=== PATIENT | male | born 1995 | race Caucasian/White ===

== ENCOUNTER 2021-12-03 17:26 | Inpatient (IN) ==
[2021-12-03] MEDS ORDERED: Ketamine *HR* 500 MG/10 ML MDV IM ONE ×2 (17:44→18:00)
[2021-12-03] MEDS ORDERED: Ketamine *HR* 500 MG/10 ML MDV ONE (17:54)
[2021-12-03] MEDS ORDERED: 0.9 % Sodium Chloride 1,000 ML IVC ONE (18:14)
[2021-12-03 18:51] LABS: VBG HCO3 26 mEq/L (21-27); VBG PCO2 35 mmHg (41-51); VBG PH 7.47 pH Units (7.32-7.42); VBG PO2 66 mmHg (25-50)
[2021-12-03 19:15] LABS: Acetaminophen < 10 mcg/mL (10-20); Alanine Aminotransferase 17 Units/L (7-52); Albumin 4.9 g/dL (3.5-5.7); Albumin/Globulin Ratio 1.4 (1.1-2.2); Alkaline Phosphatase 143 Units/L (34-104); Aspartate Amino Transferase 20 Units/L (13-39); Bilirubin,Direct 0.2 mg/dL (0.0-0.2); Bilirubin,Indirect 0.6 mg/dL (0.0-1.0); Bilirubin,Total 0.8 mg/dL (0.3-1.0); Creatine Kinase 125 Units/L (30-223); Ethanol < 10 mg/dL (Less than 10); Globulin 3.4 g/dL (2.4-3.5); Salicylate < 2.5 mg/dL (15.0-30.0); Total Protein 8.3 g/dL (6.4-8.9)
[2021-12-03 19:24] LABS: Amphetamine Screen,Urine Negative ng/mL (Cutoff=1000); Barbiturate Screen,Urine Negative ng/mL (Cutoff=200); Benzodiazepines Screen,Urine Positive ng/mL (Cutoff=200); Cannabinoid Screen,Urine Positive ng/mL (Cutoff = 50); Cocaine Screen,Urine Negative ng/mL (Cutoff= 300); Opiate Screen,Urine Negative ng/mL (Cutoff=300); Phencyclidine Screen,Urine Negative ng/mL (Cutoff=25)
[2021-12-03] MEDS ORDERED: Ondansetron 4 MG/2 ML VIAL IVP ONE ×2 (19:56→23:20)
[2021-12-04] MEDS ORDERED: Ondansetron 4 MG/2 ML VIAL IVP PRN (00:29)
[2021-12-04] MEDS ORDERED: Naloxone 0.4 MG/ML INJ IVP PRN (00:29)
[2021-12-04] MEDS ORDERED: Melatonin 3 MG TABLET PO PRN (00:35)
[2021-12-04] MEDS ORDERED: diazePAM 10 MG/2 ML SYRINGE IVP STA (01:26)
[2021-12-04] MEDS: Ringers Solution, Lactated 1,000 ML IVC SCH ×2 (01:48→08:58)
[2021-12-04] MEDS: *HR* Promethazine 25 MG/ML VIAL IM PRN ×2 (03:16→10:14)
[2021-12-04 06:11] LABS: Basophils % 0.1 %; Hematocrit 36.2 % (37.5-50.1); Hemoglobin 13.2 g/dL (12.9-16.9); Immature Granulocytes % 0.7 % (0-4); Lymphocytes # 1.1 K/mcL (0.6-4.6); Lymphocytes % 6.7 %; Mean Corpuscular HGB Conc 36.5 g/dL (31.6-35.5); Mean Corpuscular Hemoglobin 28.3 pg (28.0-33.3); Mean Corpuscular Volume 77.7 fL (83.0-100.0); Mean Platelet Volume 9.2 fL (9.4-12.4); Neutrophils # 13.8 K/mcL (1.6-8.9); Platelet Count 381 K/mcL (140-400); Red Blood Count 4.66 M/mcL (4.19-5.50); Red Cell Distribution Width 13.2 % (11.5-14.5); Segmented Neutrophils % 86.5 %; White Blood Count 15.9 K/mcL (4.3-11.1)
[2021-12-04 06:24] LABS: INR 1.1; Prothrombin Time 12.5 Seconds (9.4-12.1)
[2021-12-04 06:31] LABS: Alanine Aminotransferase 11 Units/L (7-52); Albumin 4.5 g/dL (3.5-5.7); Albumin/Globulin Ratio 1.5 (1.1-2.2); Alkaline Phosphatase 129 Units/L (34-104); Aspartate Amino Transferase 22 Units/L (13-39); BUN/Creatinine Ratio 16 (6-26); Bilirubin,Total 0.9 mg/dL (0.3-1.0); Blood Urea Nitrogen 14 mg/dL (6-20); Calcium 9.7 mg/dL (8.6-10.3); Carbon Dioxide 23 mEq/L (23-29); Chloride 101 mEq/L (98-107); Glucose 118 mg/dL (70-105); Magnesium 1.8 mg/dL (1.6-2.6); Osmolality,Calculated 288 (280-300); Potassium 3.5 mEq/L (3.5-5.1); Sodium 138 mEq/L (136-145); Total Protein 7.5 g/dL (6.4-8.9); eGFR For African Americans > 60 (> 60); eGFR For Non-African Americans > 60 (> 60)
[2021-12-04] MEDS ORDERED: D5% in Water 1,000 ML IVC PRN (11:01)
[2021-12-04] MEDS ORDERED: *HR* Dextrose 50 % in Water (Syg) 50 ML SYRINGE IVP PRN (11:01)
[2021-12-04] MEDS ORDERED: Dextrose 4 GM Chewable Tablets PO PRN ×2 (11:01)
[2021-12-04] MEDS: Insulin LISPRO 300 UNITS/3 ML VIAL SUBQ SCH ×2 (12:41→18:03)
[2021-12-04] MEDS: *HR* LORazepam 2 MG/ML VIAL IVP PRN (13:35)
[2021-12-04] MEDS ORDERED: Acetaminophen IV 500 MG/50 ML BAG IVPB ONE (18:09)
[2021-12-04] MEDS ORDERED: cefTRIAXone 2,000 MG in 0.9 % Sodium Chloride 20 ML IVP ONE (18:22)
[2021-12-04] MEDS: 0.9 % Sodium Chloride 1,000 ML IVC SCH (18:46)
[2021-12-04] MEDS: Vancomycin 1,250 MG/262.5 ML IV.SOLN IVPB SCH (20:52)
[2021-12-05] MEDS ORDERED: Acetaminophen IV 1,000 MG/100 ML BAG IVPB ONE (03:32)
[2021-12-05] MEDS: Vancomycin 1,250 MG/262.5 ML IV.SOLN IVPB SCH ×3 (04:16→20:26)
[2021-12-05] MEDS ORDERED: *HR* LORazepam 2 MG/ML VIAL IVP ONE (04:35)
[2021-12-05] MEDS ORDERED: Haloperidol Lactate 5 MG/ML VIAL IVP ONE (04:47)
[2021-12-05] MEDS ORDERED: Pantoprazole 40 MG VIAL IVP ONE (04:49)
[2021-12-05] MEDS: Insulin LISPRO 300 UNITS/3 ML VIAL SUBQ SCH ×4 (05:14→17:43)
[2021-12-05] MEDS: 0.9 % Sodium Chloride 1,000 ML IVC SCH (05:15)
[2021-12-05] MEDS: *HR* Promethazine 25 MG/ML VIAL IM PRN (05:16)
[2021-12-05] MEDS: Dexmedetomidine HCl 400 MCG/100 ML MLS IVC SCH ×3 (05:28→18:31)
[2021-12-05] MEDS ORDERED: cefTRIAXone 1,000 MG in 0.9 % Sodium Chloride 10 ML IVP SCH (12:00)
[2021-12-05] MEDS: Nicotine 14 MG PATCH.TD24 TD SCH (12:35)
[2021-12-05] MEDS: Acetaminophen 325 MG TABLET PO PRN (22:16)
[2021-12-06] MEDS: Insulin LISPRO 300 UNITS/3 ML VIAL SUBQ SCH ×2 (00:35→09:30)
[2021-12-06 03:39] LABS: Basophils % 0.2 %; Eosinophils % 0.2 %; Hematocrit 35.9 % (37.5-50.1); Hemoglobin 12.9 g/dL (12.9-16.9); Immature Granulocytes % 0.6 % (0-4); Lymphocytes # 2.1 K/mcL (0.6-4.6); Lymphocytes % 18.5 %; Mean Corpuscular HGB Conc 35.9 g/dL (31.6-35.5); Mean Corpuscular Hemoglobin 28.2 pg (28.0-33.3); Mean Corpuscular Volume 78.6 fL (83.0-100.0); Mean Platelet Volume 8.8 fL (9.4-12.4); Monocytes # 0.7 K/mcL (0.0-1.3); Monocytes % 5.8 %; Neutrophils # 8.4 K/mcL (1.6-8.9); Platelet Count 290 K/mcL (140-400); Red Blood Count 4.57 M/mcL (4.19-5.50); Red Cell Distribution Width 12.6 % (11.5-14.5); Segmented Neutrophils % 74.7 %; White Blood Count 11.3 K/mcL (4.3-11.1)
[2021-12-06] MEDS ORDERED: Vancomycin 1,500 MG/265 ML IV.SOLN IVPB SCH (04:00)
[2021-12-06 04:02] LABS: BUN/Creatinine Ratio 16 (6-26); Blood Urea Nitrogen 13 mg/dL (6-20); Calcium 8.8 mg/dL (8.6-10.3); Carbon Dioxide 26 mEq/L (23-29); Chloride 104 mEq/L (98-107); Glucose 102 mg/dL (70-105); Osmolality,Calculated 286 (280-300); Phosphorous 2.6 mg/dL (2.7-4.5); Sodium 138 mEq/L (136-145); eGFR For African Americans > 60 (> 60); eGFR For Non-African Americans > 60 (> 60)
[2021-12-06] MEDS ORDERED: Potassium Phosphate 44 MEQ in 0.9 % Sodium Chloride 250 ML IVPB ONE (08:00)
[2021-12-06] MEDS: Nicotine 14 MG PATCH.TD24 TD SCH (09:08)
[2021-12-06] MEDS: Acetaminophen 325 MG TABLET PO PRN (12:40)
[2021-12-06] MEDS: *HR* LORazepam 2 MG/ML VIAL IVP PRN ×3 (15:14→23:48)
[2021-12-06 17:39] LABS: Amorphous Sediment,Urine Few per hpf (None-Few); Bilirubin,Urine Negative (Negative); Blood,Urine Negative (Negative); Clarity,Urine Turbid (Clear); Color,Urine Yellow (Yellow); Glucose,Urine (UA) Normal (Normal); Ketones,Urine Negative (Negative); Leukocyte Esterase,Urine Trace (Negative); Mucus,Urine Few per lpf (None-Few); Nitrite,Urine Negative (Negative); Protein,Urine 70 mg/dL (Neg-Trace); Specific Gravity,Urine 1.028 (1.010-1.025); Squamous Epithelial Cell,Urine Few per hpf (None-Few); Urobilinogen,Urine Normal (Normal)
[2021-12-07] MEDS: *HR* LORazepam 2 MG/ML VIAL IVP PRN ×3 (04:15→14:50)
[2021-12-07] MEDS: Nicotine 14 MG PATCH.TD24 TD SCH (08:39)
[2021-12-07] MEDS: *HR* Promethazine 25 MG/ML VIAL IM PRN (08:39)
[2021-12-07 11:50] VITALS: BP 139/92; PULSE 85; TEMP 99.1; O2SAT 96
== END 2021-12-07 15:26 | disposition home or self-care (01) | DRG 773 ==
LOC: EMEROOARM 17:26 → 3NENU 17:26 → SUATTDRO 12-04 00:24 → 3NENU 12-04 00:59
PROVIDERS: ADMIT Internal Medicine; ATTEND Internal Medicine